=== PATIENT | male | born 1990 | race Caucasian/White ===

== ENCOUNTER 2024-06-12 18:54 | Outpatient (REF) | payer OTHER, SELFPAY ==
[2024-06-12 14:33] LABS: Abs Immature Grans 0.01 10^3/uL (0.0-0.06); Absolute Basophil Count 0.03 10^3/uL (0.0-0.2); Absolute Eosinophil Count 0.09 10^3/uL (0.0-0.7); Absolute Lymphocyte Count 1.97 10^3/uL (1.2-3.4); Absolute Monocyte Count 0.39 10^3/uL (0.1-0.8); Absolute Neutrophil Count 3.09 10^3/uL (1.2-6.7); Basophils % 0.5 %; Eosinophils % 1.6 %; HCT 43.6 % (40.0-50.0); HGB 15.1 g/dL (13.5-17.5); Immature Grans % 0.2 %; Lymphocytes % 35.3 %; MCH 31.3 pg (27.0-33.0); MCHC 34.6 % (32.0-36.0); MCV 90 fL (80-95); MPV 10.2 fL (8.0-11.0); Neutrophils % 55.4 %; Platelet Count 169 10^3/uL (130-400); RBC 4.83 10^6/uL (4.36-5.78); RDW 11.5 % (11.8-14.1); RDW-SD 37.9 fL; WBC 5.58 10^3/uL (4.4-10.8)
[2024-06-12 15:12] LABS: ALT 32 U/L (16-63); AST 19 U/L (15-37); Albumin 4.6 g/dL (3.4-5.0); Alkaline Phosphatase 84 U/L (46-116); BUN 19 mg/dL (7-18); Bilirubin, Total 0.7 mg/dL (0.2-1.0); Calcium 9.3 mg/dL (8.5-10.1); Chloride 105 mmol/L (98-107); Estimated GFR 102.55 (mL/min/1.73m2); Folate 14.7 ng/mL (8.6-20.0); Glucose 88 mg/dL (74-106); Potassium 4.1 mmol/L (3.5-5.1); Sodium 142 mmol/L (136-145); TSH 0.52 uIU/mL (0.36-3.74); Total Protein 7.2 g/dL (6.4-8.2); Vitamin B12 428 pg/mL (193-986); Vitamin D 25 Total 16 ng/mL (30-100)
== END 2024-06-12 18:55 | disposition home or self-care (01) ==
LOC: NCHCN 18:54
PROVIDERS: Visit Provider Family Medicine
DX: R63.4 Abnormal weight loss (principal); R53.82 Chronic fatigue, unspecified
CPT/HCPCS: 80053; 82306; 82607; 82746; 84443; 85025